=== PATIENT | male | born 1975 | race African-American/Black ===

== ENCOUNTER 2024-06-12 17:40 | Inpatient (IN) | payer MEDICAID, OTHER ==
[~2024-06-12] VITALS: Ht 177.8 cm; Wt 124.9 kg
[2024-06-12 19:50] LABS: BASOPHILS % 0.5 % (0.0-2.0); EOSINOPHILS % 1.9 % (0.0-5.0); HEMATOCRIT. 50.3 % (42.0-52.0); HEMOGLOBIN. 16.1 g/dL (14.0-18.0); LYMPHOCYTES % 32.9 % (20.0-50.0); MEAN CORPUSCULAR HEMOGLOBIN 28.1 pg (28.0-32.0); MEAN CORPUSCULAR HGB CONC 32.1 g/dL (31.0-37.0); MEAN CORPUSCULAR VOLUME 87.5 fL (80.0-94.0); MEAN PLATELET VOLUME 8.6 fl (7.4-10.4); MONOCYTES % 6.4 % (2.0-8.0); NEUTROPHILS % 58.3 % (40.0-76.0); PLATELET 276 x1000/uL (130-400); RED BLOOD CELL COUNT 5.75 mill/uL (4.7-6.1); RED CELL DISTRIBUTION WIDTH 15.1 % (11.6-14.6); WHITE BLOOD COUNT 6.8 x1000/uL (4.5-11.0)
[2024-06-12 19:56] LABS: CHLORIDE 105 mEq/L (98-107); SODIUM 136 mEq/L (136-145)
[2024-06-12 19:57] LABS: CALCIUM 9.3 mg/dL (8.7-10.4); CARBON DIOXIDE 18 mEq/L (21-32)
[2024-06-12] MEDS: CLONIDINE 0.1MG TABLET PO NR (20:00)
[2024-06-12 20:02] LABS: CREATININE 1.5 mg/dL (0.6-1.3); GLUCOSE 241 mg/dL (70-105); UREA NITROGEN BLOOD 13 mg/dL (9-23)
[2024-06-12 20:03] LABS: TROPONIN I HIGH SENSITIVITY 19 ng/L (3.0-53)
[2024-06-12 20:04] LABS: ALANINE AMINOTRANSFERASE 42 IU/L (10-49); ALBUMIN 4.3 g/dL (3.2-4.8); ASPARTATE AMINOTRANSFERASE 52 IU/L (<34); BILIRUBIN TOTAL 0.4 mg/dL (0.1-1.0)
[2024-06-12] MEDS: CLONIDINE 0.2MG TABLET PO ONE (20:06)
[2024-06-12] MEDS: ALBUTEROL (0.083%) 2.5MG/3ML NEB HHN NR (22:46)
[2024-06-12 22:47] VITALS: PULSE 120; RESP 26; O2SAT 91
[2024-06-12] MEDS: LORAZEPAM 2MG/ML INJ IV NR (22:59)
[2024-06-12] MEDS: METHYLPREDNISOLONE SOD SUCC 125MG/2ML (ACT-O-VIAL) IV NR (22:59)
[2024-06-12] MEDS: LEVETIRACETAM 500MG PREMIX 100 ML IV NR (22:59)
[2024-06-12 23:35] VITALS: PULSE 110; RESP 19
[2024-06-13] VITALS (78 sets, daily range): BP systolic 62–191; BP diastolic 14–117; PULSE 0–184; RESP 18–34; TEMP 37.00296–41.05884; O2SAT 18–100
[2024-06-13] MEDS ORDERED: NOREPINEPHRINE 8MG/250ML PMX 250 ML IV ONE (00:04)
[2024-06-13] MEDS: VANCOMYCIN 1G PREMIX 200 ML IV SCH (00:15)
[2024-06-13 00:28] LABS: *AMPHETAMINES SCREEN URINE NEGATIVE (NEGATIVE); *BARBITURATES SCREEN URINE NEGATIVE (NEGATIVE); *BENZODIAZEPINES SCREEN URINE NEGATIVE (NEGATIVE); *COCAINE SCREEN URINE PRESUMPTIVE POSITIVE (NEGATIVE); CANNABINOID URINE SCREEN PRESUMPTIVE POSITIVE (NEGATIVE); METHADONE URINE SCREEN NEGATIVE (NEGATIVE); OPIATES URINE SCREEN NEGATIVE (NEGATIVE)
[2024-06-13 00:29] LABS: ECSTASY MDMA SCREEN URINE NEGATIVE (NEGATIVE); PHENCYCLIDINE URINE SCREEN NEGATIVE (NEGATIVE)
[2024-06-13] MEDS: NOREPINEPHRINE 8MG/250ML PMX 250 ML IV ONE (00:40)
[2024-06-13] MEDS: PIPERACILLIN/TAZO 3.375G/50ML 50 ML IV ONE (00:40)
[2024-06-13 00:42] LABS: BG BASE EXCESS -17.5 mmol/L (-2.0-3.0); BG CARBOXYHEMOGLOBIN 0.4 % (0.5-1.5); BG DEOXYHEMOGLOBIN 10.4 % (0.0-5.0); BG FRACTION INSPIRED OXYGEN 100; BG HCO3 ACT 17.2 mmol/L (21.0-28.0); BG METHEMOGLOBIN 0.1 % (0.5-1.5); BG OXYGEN SATURATION 89.5 % (94.0-98.0); BG OXYHEMOGLOBIN 89.1 % (94.0-98.0); BG PCO2 89.2 mmHg (35.0-48.0); BG PH 6.903 (7.350-7.450); BG PO2 90.1 mmHg (83.0-108.0); BG SAMPLE SITE RIGHT RADIAL; BG TOTAL HEMOGLOBIN 15.3 g/dL (13.5-17.5); BG VENT MODE VENT - AC
[2024-06-13] MEDS: SODIUM BICARBONATE 100 MEQ in DEXTROSE 5% WATER 900 ML IV ONE (01:13)
[2024-06-13] MEDS ORDERED: IPRATROPIUM/ALBUTEROL 0.5-3(2.5)MG/3ML NEB HHN PRN (03:15)
[2024-06-13] MEDS ORDERED: PROPOFOL 10MG/ML 100ML 100 ML IV PRN (03:15)
[2024-06-13] MEDS ORDERED: LORAZEPAM 2MG/ML INJ IV PRN (03:15)
[2024-06-13] MEDS ORDERED: PHENYLEPHRINE 100 MG in DEXT 5% WATER 240 ML IV PRN (03:15)
[2024-06-13] MEDS ORDERED: MIDAZOLAM 100MG/100ML PMX 100 ML IV PRN (03:15)
[2024-06-13] MEDS: FUROSEMIDE 40MG/4ML VIAL IVP NR (03:15)
[2024-06-13] MEDS ORDERED: PHENYLEPHRINE 50MG/250ML PMX 250 ML IV PRN (03:15)
[2024-06-13] MEDS ORDERED: VASOPRESSIN 20 UNIT in SODIUM CHLORIDE 0.9% 99 ML IV PRN (03:45)
[2024-06-13] MEDS: PHENYLEPHRINE 100 MG in DEXT 5% WATER 240 ML IV PRN (03:46)
[2024-06-13] MEDS: PROPOFOL 10MG/ML 100ML 100 ML IV SCH (03:50)
[2024-06-13] MEDS: MIDAZOLAM 100MG/100ML PMX 100 ML IV PRN (03:51)
[2024-06-13] MEDS: DILTIAZEM HCL 5MG/ML 5ML VIAL IV NR (04:05)
[2024-06-13] MEDS ORDERED: ONDANSETRON HCL 4MG/2ML INJ IV PRN (04:30)
[2024-06-13] MEDS: VASOPRESSIN 20 UNIT in SODIUM CHLORIDE 0.9% 99 ML IV PRN (05:53)
[2024-06-13] MEDS: NOREPINEPHRINE 8MG/250ML PMX 250 ML IV PRN (06:47)
[2024-06-13] MEDS: ACETAMINOPHEN 650MG/20.3ML UDC PO PRN (06:49)
[2024-06-13] MEDS: LEVETIRACETAM 500MG PREMIX 100 ML IV SCH (09:02)
[2024-06-13 09:48] LABS: BG BASE EXCESS -3.5 mmol/L (-2.0-3.0); BG CARBOXYHEMOGLOBIN 0.3 % (0.5-1.5); BG DEOXYHEMOGLOBIN 11.4 % (0.0-5.0); BG FRACTION INSPIRED OXYGEN 100; BG HCO3 ACT 23.5 mmol/L (21.0-28.0); BG METHEMOGLOBIN 0.1 % (0.5-1.5); BG OXYGEN SATURATION 88.6 % (94.0-98.0); BG OXYHEMOGLOBIN 88.2 % (94.0-98.0); BG PCO2 49.1 mmHg (35.0-48.0); BG PH 7.298 (7.350-7.450); BG PO2 56.5 mmHg (83.0-108.0); BG SAMPLE SITE RIGHT BRACHIAL; BG TOTAL HEMOGLOBIN 18.1 g/dL (13.5-17.5); BG VENT MODE VENT - AC
[2024-06-13 11:47] LABS: HEMATOCRIT. 53.9 % (42.0-52.0); HEMOGLOBIN. 17.1 g/dL (14.0-18.0); MEAN CORPUSCULAR HEMOGLOBIN 27.7 pg (28.0-32.0); MEAN CORPUSCULAR HGB CONC 31.7 g/dL (31.0-37.0); MEAN CORPUSCULAR VOLUME 87.3 fL (80.0-94.0); MEAN PLATELET VOLUME 8.1 fl (7.4-10.4); PLATELET 244 x1000/uL (130-400); RED BLOOD CELL COUNT 6.18 mill/uL (4.7-6.1); RED CELL DISTRIBUTION WIDTH 15.5 % (11.6-14.6); WHITE BLOOD COUNT 31.9 x1000/uL (4.5-11.0)
[2024-06-13 11:49] LABS: DIFFERENTIAL COMMENT 1
[2024-06-13 11:53] LABS: POTASSIUM 4.1 mEq/L (3.5-5.1)
[2024-06-13 11:54] LABS: CALCIUM 8.9 mg/dL (8.7-10.4)
[2024-06-13 12:00] LABS: CREATININE 2.7 mg/dL (0.6-1.3)
[2024-06-13] MEDS ORDERED: LEVETIRACETAM 500MG PREMIX 100 ML IV SCH ×2 (13:00→21:00)
[2024-06-13 13:33] LABS: PLATELET ESTIMATE NORMAL
[2024-06-13] MEDS ORDERED: PIPERACILLIN/TAZO 3.375G/50ML 50 ML IV SCH (14:00)
[2024-06-13] MEDS: PIPERACILLIN/TAZO 3.375G/100ML 100 ML IV SCH (14:53)
[2024-06-13 14:55] LABS: CLARITY URINE TURBID (CLEAR); COLOR URINE ORANGE (YELLOW); GLUCOSE URINE TRACE (NEGATIVE); KETONES URINE NEGATIVE (NEGATIVE); LEUKOCYTE ESTERASE URINE 1+ (NEGATIVE); NITRITE URINE NEGATIVE (NEGATIVE); OCCULT BLOOD URINE 3+ (NEGATIVE); PROTEIN URINE 3+ (NEGATIVE); SPECIFIC GRAVITY URINE 1.022 (1.005-1.030); UROBILINOGEN URINE 0.2 E.U./dL (0.2-1.0)
[2024-06-13 15:15] LABS: BACTERIA URINE 2+; RBC URINE TNTC /hpf (0-2); SQUAMOUS EPITHELIAL CELL URINE NONE SEEN /lpf (RARE/1+); YEAST URINE NONE SEEN
[2024-06-13] MEDS ORDERED: IPRATROPIUM BROMIDE (0.02%) 0.5MG/2.5ML NEB HHN SCH (18:00)
[2024-06-13] MEDS: ACETAMINOPHEN 1000MG/100ML 100 ML IV PRN (18:20)
[2024-06-13] MEDS ORDERED: DEXTROSE 50% WATER 50ML SYRINGE IV ONE ×2 (20:11→20:21)
[2024-06-13] MEDS ORDERED: AMIODARONE 360MG/200ML 200 ML IV SCH (20:15)
[2024-06-13 20:16] LABS: THYROID STIMULATING HORMONE 2.81 uIU/mL (0.55-4.78)
[2024-06-13] MEDS ORDERED: DOPAMINE 400MG/250ML PREMIX 250 ML IV ONE (20:22)
[2024-06-13] MEDS ORDERED: SODIUM BICARBONATE 150 MEQ in DEXT 10% WATER 850 ML IV SCH (20:30)
[2024-06-13] MEDS ORDERED: EPINEPHRINE 10 MG in SODIUM CHLORIDE 0.9% 240 ML IV PRN (20:30)
[2024-06-13] MEDS: EPINEPHRINE 10 MG in SODIUM CHLORIDE 0.9% 240 ML IV PRN (20:42)
[2024-06-13] MEDS: AMIODARONE HCL 450 MG in DEXT 5% WATER 241 ML IV SCH (20:44)
== END 2024-06-13 23:30 | DRG 720 ==
LOC: ER 17:40 → EDBEDREQ 06-13 00:28 → EDBEDREQDT 06-13 00:28 → EDBEDREQTM 06-13 00:28 → EDBEDREQSVC 06-13 00:28 → MICUSO 06-13 00:29
PROVIDERS: ADMIT Internal Medicine; ATTEND Internal Medicine
PROC: 5A12012 Performance of Cardiac Output, Single, Manual (ICD-10-PCS; principal; 2024-06-12)
PROC: 5A1935Z Respiratory Ventilation, Less than 24 Consecutive Hours (ICD-10-PCS; 2024-06-12)
PROC: 0BH17EZ Insertion of Endotracheal Airway into Trachea, Via Natural or Artificial Opening (ICD-10-PCS; 2024-06-12)
PROC: 06HY33Z Insertion of Infusion Device into Lower Vein, Percutaneous Approach (ICD-10-PCS; 2024-06-13)
PROC: B54BZZA Ultrasonography of Right Lower Extremity Veins, Guidance (ICD-10-PCS; 2024-06-13)
DX: A41.9 Sepsis, unspecified organism (principal); G93.6 Cerebral edema; I46.9 Cardiac arrest, cause unspecified; I60.9 Nontraumatic subarachnoid hemorrhage, unspecified; I48.91 Unspecified atrial fibrillation; G35 Multiple sclerosis; J69.0 Pneumonitis due to inhalation of food and vomit; I13.0 Hypertensive heart and chronic kidney disease with heart failure and stage 1 through stage 4 chronic kidney disease, or unspecified chronic kidney disease; E87.4 Mixed disorder of acid-base balance; I50.9 Heart failure, unspecified; T40.5X1A Poisoning by cocaine, accidental (unintentional), initial encounter; J80 Acute respiratory distress syndrome; F12.10 Cannabis abuse, uncomplicated; F14.10 Cocaine abuse, uncomplicated; N17.0 Acute kidney failure with tubular necrosis; R57.9 Shock, unspecified; Y90.9 Presence of alcohol in blood, level not specified; F10.10 Alcohol abuse, uncomplicated; G40.909 Epilepsy, unspecified, not intractable, without status epilepticus; R73.9 Hyperglycemia, unspecified; N18.9 Chronic kidney disease, unspecified; I16.0 Hypertensive urgency; F17.210 Nicotine dependence, cigarettes, uncomplicated; G93.2 Benign intracranial hypertension; D64.9 Anemia, unspecified; Y92.89 Other specified places as the place of occurrence of the external cause
CPT/HCPCS: 36415; 36600; 71045; 76770; 80048; 80053; 80305; 80320; 81003; 82375; 82550; 82805; 82962; 83036; 83880; 84443; 84484; 85025; 93005; 93306; 94640; 99291; J0282; J1265; J1940; J1953; J2060; J2543; J2704; J2919; J3370; J3490; J7050; J7060; J7070; G0480